=== PATIENT | female | born 1955 | race Hispanic/Latino ===

== ENCOUNTER 2016-12-26 21:32 | Emergency (ER) | payer OTHER, MEDICARE ==
[~2016-12-26] VITALS: Ht 172.7 cm; Wt 100.0 kg
[2016-12-26] MEDS ORDERED: PERCOCET 5/325M1 TAB PO (23:37)
[2016-12-26 23:55] VITALS: BP 143/78
== END 2016-12-26 23:55 | disposition home or self-care (01) | DRG 605 ==
LOC: ED 21:32
DX: S20.221A Contusion of right back wall of thorax, initial encounter (principal); V53.6XXA Passenger in pick-up truck or van injured in collision with car, pick-up truck or van in traffic accident, initial encounter